=== PATIENT | female | born 2000 | race Two or more races ===

== ENCOUNTER 2022-05-07 11:45 | Emergency (ER) | payer OTHER ==
[~2022-05-07] VITALS: Ht 167.6 cm; Wt 91.2 kg
[2022-05-07 13:27] VITALS: BP 123/46
[2022-05-07] MEDS ORDERED: IBUP800T27 PO (15:09)
== END 2022-05-07 15:30 | disposition home or self-care (01) ==
LOC: ER 11:45
DX: G44.209 Tension-type headache, unspecified, not intractable (principal)
CPT/HCPCS: 70450

== ENCOUNTER 2022-12-10 10:31 | Emergency (ER) | payer OTHER ==
[~2022-12-10] VITALS: Ht 167.6 cm; Wt 86.8 kg
[~2022-12-10 10:31] MED LIST: IBUP800T27 PO
[2022-12-10 11:09] VITALS: BP 112/66
[2022-12-10] MEDS ORDERED: IBUP800T27 PO ×3 (12:10→12:11)
[2022-12-10] MEDS ORDERED: METH750T22 PO ×3 (12:10→12:11)
[2022-12-10] MEDS ORDERED: ACETAMINOPHEN 500 MG TAB PO ONE (12:15)
== END 2022-12-10 12:15 | disposition home or self-care (01) ==
LOC: ER 10:31
DX: S29.011A Strain of muscle and tendon of front wall of thorax, initial encounter (principal); S16.1XXA Strain of muscle, fascia and tendon at neck level, initial encounter; V49.9XXA Car occupant (driver) (passenger) injured in unspecified traffic accident, initial encounter; Y93.I9 Activity, other involving external motion; Y92.89 Other specified places as the place of occurrence of the external cause; Y99.8 Other external cause status
CPT/HCPCS: 71101; 72040

== ENCOUNTER 2024-03-02 14:30 | Emergency (ER) | payer OTHER ==
[~2024-03-02] VITALS: Ht 167.6 cm; Wt 85.4 kg
[~2024-03-02 14:30] MED LIST changes: +IBUP-1456 PO; -IBUP800T27 PO; +METH-1182 PO
[2024-03-02 15:22] LABS: Urine Bacteria FEW /hpf (None Seen); Urine Blood TRACE /uL (Negative); Urine Clarity Clear (Clear); Urine Color Light-Yellow (Yellow); Urine Protein, UAD Negative (Negative); Urine Specific Gravity 1.011 (1.001-1.035); Urine Urobilinogen Normal (Negative); Urine WBC 1 /hpf (0 - 5); Urine pH 6.5 (5.0-9.0)
[2024-03-02 16:40] VITALS: BP 105/65
[2024-03-02 16:46] VITALS: PULSE 68; RESP 16; O2SAT 98
== END 2024-03-02 17:36 | disposition home or self-care (01) ==
LOC: ER 14:30
DX: N20.0 Calculus of kidney (principal); R68.89 Other general symptoms and signs; Z79.899 Other long term (current) drug therapy
CPT/HCPCS: 74176; 81001

== ENCOUNTER 2024-12-03 14:21 | Emergency (ER) | payer OTHER ==
[~2024-12-03] VITALS: Ht 167.6 cm; Wt 96.1 kg
[2024-12-03 14:59] LABS: Basophils # (auto) 0.1 10 ^3/uL (0-0.2); Basophils % (auto) 0.7 % (0.0-2.0); Eosinophils # (auto) 0.5 10 ^3/uL (0-0.8); Eosinophils % (auto) 5.4 % (0.0-7.0); Hematocrit 40.6 % (36.0-46.0); Hemoglobin 13.7 g/dL (12.2-16.2); Lymphocytes # (auto) 2.4 10 ^3/uL (0.4-5.4); Lymphocytes % (auto) 24.4 % (10.0-50.0); Mean Corpuscular Hemoglobin 30.5 pg (28.0-32.0); Mean Corpuscular Hgb Conc. 33.8 g/dL (32.0-36.0); Mean Corpuscular Volume 90.2 fL (80.0-100.0); Monocytes # (auto) 0.8 10 ^3/uL (0-1.3); Monocytes % (auto) 8.1 % (0.0-12.0); Neutrophils % (auto) 61.4 % (37.0-80.0); Platelet Count (auto) 215 10^3/uL (140-450); White Blood Cell 9.7 10^3/uL (4.4-10.8)
[2024-12-03 15:02] LABS: Urine Bacteria FEW /hpf (None Seen); Urine Blood 1+ /uL (Negative); Urine Clarity Clear (Clear); Urine Color Light-Yellow (Yellow); Urine Mucus FEW (None Seen); Urine Protein, UAD Negative (Negative); Urine Specific Gravity 1.023 (1.001-1.035); Urine Squamous Epithelial Cell FEW /hpf (<5); Urine Urobilinogen Normal (Negative); Urine WBC 2 /HPF (0-5)
[2024-12-03 15:14] LABS: Amphetamine Screen, Urine Neg (NEGATIVE); Barbiturate Scree,Urine Neg (NEGATIVE); Benzodiazephine Screen, Urine Neg (NEGATIVE); Cannabinoid Screen, Urine Neg (NEGATIVE); Cocaine Screen, Urine Neg (NEGATIVE); Opiate Scree,Urine Neg (NEGATIVE); Phencyclidine Screen, Urine Neg (NEGATIVE)
[2024-12-03 15:18] LABS: Alanine Aminotransferase 12 U/L (7-40); Albumin 4.4 g/dL (3.2-4.8); Alkaline Phosphatase 56 U/L (46-116); Anion Gap 7 (5-15); Aspartate Aminotransferase 12 U/L (13-40); Bilirubin, Total 0.5 mg/dL (0.2-1.0); Blood Urea Nitrogen 9 mg/dL (9-23); Calcium 9.3 mg/dL (8.7-10.4); Carbon Dioxide 25 mmol/L (20-31); Chloride 106 mmol/L (98-107); Glucose 85 mg/dL (74-106); Lipase 37 U/L (12-53); Potassium 3.8 mmol/L (3.5-5.1); Sodium 138 mmol/L (136-145); Total Protein 6.9 g/dL (5.7-8.2)
--- NOTE | 2024-12-03 15:41 | ED.PDOC ---
MAINTENANCE ELECTRICIAN HPI Comments A 24 year old women presents to the ED with a chief complaint of pelvic pain x 2 weeks. Her pain is rated as mild No trauma no injury LMP 11/01/24. Patient has been experiencing suprapubic pelvic pain for the past 2 weeks associated with nausea, bloating after eating and intermittent cramping that wax and wanes with no specific pattern. She has taken Pepto-Bismol and herbal teas with no relief of symptoms. Last bowel movement was this morning, normal with no blood. Denies fevers chills night sweats unintentional weight loss Denies vomiting diarrhea Denies blood in the stool Denies sick contact with similar symptoms Denies new foods/medications Denies family history of GI cancer Denies urgency, frequency, hematuria Denies vaginal discharge, vaginal discomfort Chief Complaint: Pelvic Pain Time Seen by MD: 15:10 Reviewed Notes: Nurses Notes, Medications, Allergies Allergies: Uncoded Allergies: CORN (Allergy, Unknown, 05/07/22) FISH (Allergy, Unknown, 05/07/22) PEACHES (Allergy, Unknown, 05/07/22) PEANUTS (Allergy, Unknown, 05/07/22) SEAFOOD (Allergy, Unknown, 05/07/22) Home Meds Active Scripts Simethicone (Simethicone) 80 Mg Chw, 1 TAB PO Q8HR for 10 Days, #30 TAB 0 Refills Prov:CONSTANCE PADRON NP 12/03/24 Vit W/ Ferrous Fumara ( One Daily) Daily Tab, 1 TAB PO DAILY for 90 Days, #90 TAB 3 Refills Prov:CONSTANCE PADRON NP 12/03/24 Ibuprofen (Ibuprofen) 800 Mg Tab, 1 TAB PO TID, #30 TAB Prov:ALYSSA MARTIN 03/02/24 Methocarbamol (Methocarbamol) 750 Mg Tab, 750 MG PO BID, #20 TAB Prov:ALYSSA MARTIN 12/10/22 Ibuprofen (Ibuprofen) 800 Mg Tab, 1 TAB PO TID, #30 TAB Prov:ALYSSA MARTIN 12/10/22 Ibuprofen (Ibuprofen) 800 Mg Tab, 1 TAB PO TID, #30 TAB Prov:ALYSSA MARTIN 05/07/22 Information Source: Patient Timing: Weeks Prehospital treatment: None Severity: Moderate Associated Signs and Symptoms: Abdominal Pain, N/V, Cramping Past Medical History PAST MEDICAL HISTORY: Denies Surgical History: Denies all surgeries DIGITAL MEASUREMENT ADVISOR History: Denies all DIGITAL MEASUREMENT ADVISOR Hx Family History Family History: Reviewed,noncontributory to illness Social History Smoker: Non-Smoker Alcohol: Denies ETOH Use Drugs: Denies Drug Use Lives In: Home All Other Systems: Reviewed and Negative (as per HPI) Physical Exam General Appearance: No Apparent Distress, Normal HEENT: Normal ENT Inspection, Pharynx Normal, TMs Normal Neck: Full Range of Motion, Non-Tender, Normal, Normal Inspection Respiratory: Chest Non-Tender, Lungs Clear, No Accessory Muscle Use, No Respiratory Distress, Normal Breath Sounds Cardiovascular: No Edema, No JVD, No Murmur, No Gallop, Regular Rate/Rhythm Breast Exam: Deferred Gastrointestinal: No Organomegaly, No Pulsatile Mass, Normal Bowel Sounds, Soft, Tenderness Genitalia: Deferred Pelvic: Deferred Rectal: Deferred Extremities: No calf tenderness, Normal capillary refill, Normal inspection, Normal range of motion, Non-tender, No pedal edema Musculoskeletal : Apperance: Normal Neurologic: Alert, stained glass painter II-XII nml as Tested, No Motor Deficits, Normal Affect, Normal Mood, No Sensory Deficits Cerebellar Function: Normal Reflexes: Normal Skin: Dry, Normal Color, Warm Lymphatic: No Adenopathy Was a procedure done? Was a procedure done?: No Differential Diagnosis (DIGITAL MEASUREMENT ADVISOR) Vaginal Bleeding: Ectopic , Other (early , UTI) X-Ray, Labs, Meds, VS Vital Signs Date Time Temp Pulse Resp B/P (MAP) Pulse Ox O2 Delivery O2 Flow Rate FiO2 12/03/24 16:36 98.1 88 16 134/74 (94) 98 98.1 12/03/24 16:36 74 16 97 Room Air 12/03/24 14:44 97.8 71 16 116/56 (76) 96 97.8 Lab Test 12/03/24 14:45 12/03/24 14:30 Range/Units White Blood Count 9.7 4.4-10.8 10^3/uL Red Blood Count 4.50 4.0-5.20 10^6/uL Hemoglobin 13.7 12.2-16.2 g/dL Hematocrit 40.6 36.0-46.0 % Mean Corpuscular Volume 90.2 80.0-100.0 fL Mean Corpuscular Hemoglobin 30.5 28.0-32.0 pg Mean Corpuscular Hemoglobin Concent 33.8 32.0-36.0 g/dL Red Cell Distribution Width 14.0 11.8-14.3 % Platelet Count 215 140-450 10^3/uL Mean Platelet Volume 8.7 6.9-10.8 fL Neutrophils (%) (Auto) 61.4 37.0-80.0 % Lymphocytes (%) (Auto) 24.4 10.0-50.0 % Monocytes (%) (Auto) 8.1 0.0-12.0 % Eosinophils (%) (Auto) 5.4 0.0-7.0 % Basophils (%) (Auto) 0.7 0.0-2.0 % Neutrophils # (Auto) 6.0 1.6-8.6 10 ^3/uL Lymphocytes # (Auto) 2.4 0.4-5.4 10 ^3/uL Monocytes # (Auto) 0.8 0-1.3 10 ^3/uL Eosinophils # (Auto) 0.5 0-0.8 10 ^3/uL Basophils # (Auto) 0.1 0-0.2 10 ^3/uL Nucleated Red Blood Cells 0.0 % Sodium Level 138 136-145 mmol/L Potassium Level 3.8 3.5-5.1 mmol/L Chloride Level 106 98-107 mmol/L Carbon Dioxide Level 25 20-31 mmol/L Anion Gap 7 5-15 Blood Urea Nitrogen 9 9-23 mg/dL Creatinine 0.69 0.550-1.02 mg/dL Glomerular Filtration Rate Calc 125 >90 mL/min BUN/Creatinine Ratio 13.0 10.0-20.0 Serum Glucose 85 74-106 mg/dL Lactic Acid Level 1.0 0.4-2.0 mmol/L Calcium Level 9.3 8.7-10.4 mg/dL Total Bilirubin 0.5 0.2-1.0 mg/dL Aspartate Amino Transferase (AST) 12 L 13-40 U/L Alanine Aminotransferase (ALT) 12 7-40 U/L Alkaline Phosphatase 56 46-116 U/L Total Protein 6.9 5.7-8.2 g/dL Albumin 4.4 3.2-4.8 g/dL Lipase 37 12-53 U/L Beta HCG, Quantitative 75681.1 H 1.5-4.2 mIU/mL Urine Color Light-yellow Yellow Urine Clarity Clear Clear Urine pH 6.0 5.0-9.0 Urine Specific [place] 1.023 1.001-1.035 Urine Protein Negative Negative Urine Ketones Negative Negative Urine Blood 1+ H Negative /uL Urine Nitrite Negative Negative Urine Bilirubin Negative Negative Urine Urobilinogen Normal Negative mg/dL Urine Leukocyte Esterase Negative Negative /uL Urine RBC 5 0 - 4 /hpf Urine Microscopic WBC 2 0-5 /HPF Urine Squamous Epithelial Cells Few <5 /hpf Urine Bacteria Few H None Seen /hpf Urine Mucus Few None Seen Urine Glucose Normal Normal mg/dL Urine Test Positive Negative Urine Opiates Screen Neg NEGATIVE Urine Fentanyl Screen Neg NEGATIVE Urine Barbiturates Screen Neg NEGATIVE Urine Phencyclidine Screen Neg NEGATIVE Urine Amphetamines Screen Neg NEGATIVE Urine Benzodiazepines Screen Neg NEGATIVE Urine Cocaine Screen Neg NEGATIVE Urine Cannabinoids Screen Neg NEGATIVE X-Ray, Labs, Meds, VS Comment A 24 year old women presents to the ED with a chief complaint of pelvic pain onset 2 weeks Patient arrives alert and oriented, ABC's intact, afebrile, vital signs stable, saturating well in room air Presentation of mild intermittent pelvic pain Low suspicion for torsion Labs ordered and findings show a positive test. Patient is stable. Lab results discussed in detail Ordered for a positive and simethicone for bloating Advised she needs to follow up with Ob on PCP Strict return precautions discussed Additional MDM Review of External, Non-ED records: External records reviewed. Discussion with independent historian (EMS, family) history obtained from the patient at bedside Chronic conditions affecting care: none Social determinants of health affecting care: none Consideration of admission (observation or admission): I considered escalation of care to admission for this patient, however given the reassuring workup, the patient is safe for outpatient management. Time of 1ST Reevaluation: 15:40 Reevaluation 1ST: Improved Patient Education/Counseling: Diagnosis, Treatment, Prognosis Family Education/Counseling: No Family Present Departure 1 Departure Time of Disposition: 16:31 Impression: Primary Impression: test-positive Additional Impressions: Bloating Pelvic pain during Disposition: 01 HOME / SELF CARE / HOMELESS Condition: Stable e-Prescriptions Simethicone (Simethicone) 80 Mg Chw 1 TAB PO Q8HR for 10 Days, #30 TAB 0 Refills Prov: NEREIDACONSTANCE ROMEO NP 12/03/24 Vit W/ Ferrous Fumara ( One Daily) Daily Tab 1 TAB PO DAILY for 90 Days, #90 TAB 3 Refills Prov: CONSTANCE PADRON NP 12/03/24 Critical Care Note Critical Care Time?: No Stability Stability form required: No Heart Score Heart Score: Heart Score Response (Comments) Value History N/A 0 EKG N/A 0 Age N/A 0 Risk Factors N/A 0 Troponin N/A 0 Total 0 I personally scribed for CONSTANCE PADRON NP ([email or web address]) on 12/03/24 at 15:41. Electronically submitted by Sweta Mendoza ([email or web address]). CONSTANCE PADRON NP December 03, 2024 15:41
[2024-12-03] MEDS ORDERED: PREN-96 PO (16:32)
[2024-12-03] MEDS ORDERED: SIME80CH49 PO (16:32)
[2024-12-03 16:36] VITALS: BP 134/74; PULSE 74; RESP 16; TEMP 98.1; O2SAT 97
== END 2024-12-03 16:38 | disposition home or self-care (01) ==
LOC: ER 14:23
DX: O26.891 Other specified pregnancy related conditions, first trimester (principal); R14.0 Abdominal distension (gaseous); Z79.1 Long term (current) use of non-steroidal anti-inflammatories (NSAID); Z3A.01 Less than 8 weeks gestation of pregnancy; Z79.899 Other long term (current) drug therapy
CPT/HCPCS: 36415; 80053; 80307; 81001; 81025; 83605; 83690; 84702; 85025